=== PATIENT | male | born 1955 | race Caucasian/White ===

== ENCOUNTER 2020-05-08 19:19 | Observation (INO) | payer MEDICARE ==
[2020-05-08] MEDS ORDERED: Morphine 4 MG/ML VIAL ONE ×2 (20:09→21:31)
[2020-05-08] MEDS ORDERED: Ondansetron PF 4 MG/2 ML Vial ONE (20:09)
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
[2020-05-08 21:53] LABS: Bilirubin Negative (Negative); Blood, Urine Negative (Negative); Clarity Clear (Clear); Glucose, Urine (Dipstick) Normal (Negative); Ketone, Urine Negative (Negative); Leukocyte Negative Leu/uL (Negative); Nitrite Negative (Negative); Protein, Urine (Dipstick) Negative (Neg-Trace); Specific Gravity, Urine 1.008 (1.002-1.036); Urobilinogen Normal mg/dL (Less than 2)
[2020-05-08 21:57] LABS: #Basophils 0.1 thou/uL (0.0-0.2); #Eosinphils 0.1 thou/uL (0.0-0.7); #Lymphocytes 1.6 thou/uL (1.20-3.40); #Monocytes 0.2 thou/uL (0.11-0.59); #Neutrophils 8.4 thou/uL (1.40-6.50); %Basophils 0.9 % (0.0-1.0); %Eosinophils 0.6 % (0.0-10.0); %Monocytes 2.2 % (0.0-10.0); %Neutrophils 81.3 % (42.0-75.0); Hemoglobin 16.2 g/dL (14.0-18.0); Mean Corpuscular HGB CONC 33.4 g/dL (32.0-36.0); Mean Corpuscular Hemoglobin 31.8 pg (27.0-31.0); Mean Corpuscular Volume 95.2 fL (78.0-98.0); Mean Platelet Volume 7.2 fL (7.4-10.4); Platelet Count 223 thou/uL (130-400); White Blood Cell (WBC) Count 10.3 thou/uL (4.8-10.8)
[2020-05-08 22:02] LABS: INR-International Normal Ratio 0.9; PTT 27.1 sec (22.9-36.1); Prothrombin Time 12.7 sec (12.0-14.7)
[2020-05-08 22:11] LABS: ALT (SGPT) 30 U/L (8-55); AST (SGOT) 23 U/L (5-34); Albumin 4.4 g/dL (3.4-4.8); Alkaline Phosphatase 88 U/L (40-110); Anion Gap 17 mmol/L (10-20); BUN (Urea Nitrogen) 12 mg/dL (8.4-25.7); Bilirubin, Total 0.4 mg/dL (0.2-1.2); Calc. Creatinine Clearance 0 mL/min (70-130); Calcium 9.2 mg/dL (7.8-10.44); Carbon Dioxide 22 mmol/L (23-31); Chloride 106 mmol/L (98-107); Estimated GFR-MDRD 76; Globulin 2.7 g/dL (2.4-3.5); Glucose 100 mg/dL (80-115); Potassium 3.7 mmol/L (3.5-5.1); Protein, Total 7.1 g/dL (5.8-8.1); Sodium 141 mmol/L (136-145)
[2020-05-08] MEDS ORDERED: Dextrose 50% Abboject 50 ML SYRINGE SLOW IVP PRN (22:44)
[2020-05-08] MEDS ORDERED: Ondansetron ODT 4 MG TAB PO PRN (22:44)
[2020-05-08] MEDS ORDERED: Morphine 4 MG/ML VIAL SLOW IVP PRN (22:44)
[2020-05-08] MEDS ORDERED: Ondansetron PF 4 MG/2 ML Vial IVP PRN (22:44)
[2020-05-08] MEDS ORDERED: Dextrose 5% in Water 1,000 ML IV PRN (22:44)
[2020-05-08] MEDS ORDERED: Ketorolac Tromethamine 30 MG/ML VIAL IVP SCH (22:45)
[2020-05-08] MEDS ORDERED: Sodium Chloride 0.9% 1,000 ML IV SCH (22:45)
[2020-05-08] MEDS ORDERED: Cyclobenzaprine 10 MG TAB PO PRN (22:48)
[2020-05-08] MEDS ORDERED: Ibuprofen 600 MG TAB PO PRN (22:48)
[2020-05-08 23:13] LABS: Magnesium 1.9 mg/dL (1.6-2.6); Phosphorus 2.6 mg/dL (2.3-4.7)
[2020-05-08] MEDS ORDERED: traMADol HCl 50 MG TAB ONE (23:33)
[2020-05-08] MEDS ORDERED: Cyclobenzaprine 10 MG TAB ONE (23:33)
[2020-05-08] MEDS ORDERED: Ketorolac Tromethamine 30 MG/ML VIAL ONE (23:33)
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
[2020-05-09] MEDS: traMADol HCl 50 MG TAB PO SCH ×2 (01:41→04:04)
[2020-05-09] MEDS: Gabapentin 300 MG CAP PO SCH ×3 (01:41→17:31)
[2020-05-09] MEDS: Acetaminophen 500 MG TAB PO SCH ×2 (01:41→04:04)
[2020-05-09 01:46] VITALS: BMI 27.4
[2020-05-09 05:20] LABS: Hemoglobin 14.9 g/dL (14.0-18.0); Mean Corpuscular HGB CONC 33.9 g/dL (32.0-36.0); Mean Corpuscular Hemoglobin 32.7 pg (27.0-31.0); Mean Corpuscular Volume 96.4 fL (78.0-98.0); Mean Platelet Volume 7.1 fL (7.4-10.4); Platelet Count 196 thou/uL (130-400); Red Blood Cell (RBC) Count 4.55 mill/uL (4.70-6.10); White Blood Cell (WBC) Count 6.5 thou/uL (4.8-10.8)
[2020-05-09 05:45] LABS: Anion Gap 14 mmol/L (10-20); BUN (Urea Nitrogen) 15 mg/dL (8.4-25.7); Calc. Creatinine Clearance 80 mL/min (70-130); Calcium 8.6 mg/dL (7.8-10.44); Carbon Dioxide 24 mmol/L (23-31); Chloride 106 mmol/L (98-107); Estimated GFR-MDRD 61; Glucose 110 mg/dL (80-115); Magnesium 2.4 mg/dL (1.6-2.6); Phosphorus 5.9 mg/dL (2.3-4.7); Potassium 4.6 mmol/L (3.5-5.1); Sodium 139 mmol/L (136-145)
[2020-05-09] MEDS: Tamsulosin HCl 0.4 MG CAP PO SCH (08:49)
[2020-05-09] MEDS: Senokot S 8.6-50 MG TAB PO SCH ×2 (08:49→21:34)
[2020-05-09] MEDS: Polyethylene Glycol 3350 17 GM Packet PO SCH (08:49)
[2020-05-09] MEDS ORDERED: Famotidine 20 MG TAB PO SCH (09:00)
[2020-05-09] MEDS ORDERED: Gabapentin 300 MG CAP PO SCH (09:00)
[2020-05-09] MEDS: Acetaminophen/Codeine 30-300mg Tablet PO SCH ×4 (10:20→21:34)
[2020-05-09] MEDS: Ibuprofen 600 MG TAB PO SCH ×2 (10:20→18:58)
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
[2020-05-09] MEDS: Enoxaparin Sodium 30 MG/0.3 ML SYRINGE SC SCH (21:35)
[2020-05-10] MEDS: Gabapentin 300 MG CAP PO SCH ×2 (00:06→08:26)
[2020-05-10] MEDS: Ibuprofen 600 MG TAB PO SCH ×2 (02:12→08:26)
[2020-05-10] MEDS: Acetaminophen/Codeine 30-300mg Tablet PO SCH (02:22)
[2020-05-10] MEDS: Acetaminophen/Codeine 30-300mg Tablet PO PRN ×2 (05:25→13:40)
[2020-05-10] MEDS: Enoxaparin Sodium 30 MG/0.3 ML SYRINGE SC SCH (08:26)
[2020-05-10] MEDS: Senokot S 8.6-50 MG TAB PO SCH (08:26)
[2020-05-10] MEDS: Polyethylene Glycol 3350 17 GM Packet PO SCH (08:26)
[2020-05-10] MEDS: Tamsulosin HCl 0.4 MG CAP PO SCH (08:26)
[2020-05-10 12:15] VITALS: BP 117/77; TEMP 98
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
== END 2020-05-10 14:00 | disposition home or self-care (01) ==
LOC: ERS 19:19 → SURG B 22:48
PROVIDERS: ADMIT Surgery; ATTEND Surgery
DX: S32.051A Stable burst fracture of fifth lumbar vertebra, initial encounter for closed fracture (principal); G89.11 Acute pain due to trauma; K57.30 Diverticulosis of large intestine without perforation or abscess without bleeding; N40.0 Benign prostatic hyperplasia without lower urinary tract symptoms; K40.20 Bilateral inguinal hernia, without obstruction or gangrene, not specified as recurrent; V86.99XA Unspecified occupant of other special all-terrain or other off-road motor vehicle injured in nontraffic accident, initial encounter
CPT/HCPCS: 72131; 72170; 72192; 80048; 80053; 81003; 83735 ×2; 84100 ×2; 85025; 85027; 85610; 85730; 86850; 86900; 86901; 96372 ×2; 96374; 96375; 96376; 97116 ×2; 97139 ×5; 97530 ×2; 97535 ×2; 99285; G0378 ×4; 36415; G0390; J1650; J1885; J2270; J2405; J3475; J3490; J7030

== ENCOUNTER 2020-05-26 09:09 | Outpatient (CLI) | payer MEDICARE ==
--- NOTE | 2020-05-26 10:32 | RAD ---
LUMBAR SPINE 2 VIEWS: HISTORY: Lumbar fracture. COMPARISON: Comparison is made to CT lumbar spine 05/08/2020. FINDINGS: Burst fracture of the L5 vertebra is again noted. Loss of height does not appear significantly martinez ed when compared to 05/08/2020. Mild retropulsion is stable. The other lumbar vertebrae maintain height and alignment. No significant interval change. IMPRESSION: Burst fracture at L5 appears stable from the CT of 05/08/2020. POS: [facility]
== END 2020-05-26 09:10 | disposition home or self-care (01) ==
LOC: BICRAD 09:09
PROVIDERS: ATTEND Neurological Surgery
DX: S32.051D Stable burst fracture of fifth lumbar vertebra, subsequent encounter for fracture with routine healing (principal)
CPT/HCPCS: 72100

== ENCOUNTER 2020-06-19 10:16 | Outpatient (CLI) | payer MEDICARE ==
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
== END 2020-06-19 10:17 | disposition home or self-care (01) ==
LOC: BICCT 10:16
PROVIDERS: ATTEND Neurological Surgery
DX: S32.051D Stable burst fracture of fifth lumbar vertebra, subsequent encounter for fracture with routine healing (principal)
CPT/HCPCS: 72131

== ENCOUNTER 2020-07-14 06:11 | Day surgery (SDC) | payer MEDICARE ==
[2020-07-13 09:14] VITALS: BMI 25.0
[2020-07-14] MEDS ORDERED: Acetaminophen 500 MG TAB ONE (06:30)
[2020-07-14] MEDS ORDERED: Ketorolac Tromethamine 30 MG/ML VIAL ONE (06:30)
[2020-07-14] MEDS ORDERED: Lidocaine 1% w/Epinephrine 1:100K 20 ML VIAL ONE (06:42)
[2020-07-14] MEDS ORDERED: Bupivacaine 0.25% HCL 30 ML VIAL ONE (06:42)
[2020-07-14] MEDS ORDERED: Bupivacaine PF 0.5% 30 ML VIAL ONE ×2 (06:42→06:43)
[2020-07-14] MEDS ORDERED: Midazolam HCl 2 mg/2 ml Vial ONE (07:03)
[2020-07-14] MEDS ORDERED: Fentanyl 100 MCG/2 ML VIAL ONE ×2 (07:03→09:11)
[2020-07-14] MEDS ORDERED: Ondansetron PF 4 MG/2 ML Vial ONE (10:18)
[2020-07-14] MEDS ORDERED: PHENYLEPHRINE-NS 100 MCG/ML 10 ML SYRINGE ONE (10:18)
[2020-07-14] MEDS ORDERED: Glycopyrrolate 0.2 MG/ML 5 ML SYRINGE ONE (10:18)
[2020-07-14] MEDS ORDERED: ePHEDrine 50 MG/ML VIAL ONE (10:18)
[2020-07-14] MEDS ORDERED: Lidocaine 1% PF 5 ML VIAL ONE (10:18)
[2020-07-14] MEDS ORDERED: PROPOFOL 200 MG/20 ML VIAL ONE (10:18)
[2020-07-14] MEDS ORDERED: Dexamethasone 20 MG/5 ML VIAL ONE (10:18)
[2020-07-14] MEDS ORDERED: Tamsulosin HCl 0.4 MG CAP ONE (11:31)
--- NOTE | 2020-07-17 12:03 | OP ---
DATE OF PROCEDURE: 07/14/2020 PROCEDURE: Right inguinal hernia open repair with mesh. PREOPERATIVE DIAGNOSIS: Right inguinal hernia. POSTOPERATIVE DIAGNOSIS: Right inguinal hernia. HISTORY: Mr. Dunbar is a 65-year-old man with recent onset of a symptomatic right inguinal hernia. This causes him daily pain and limits his activities, but is reducible. Recommendation was made to proceed with open repair. DESCRIPTION OF PROCEDURE: After informed consent was obtained and appropriate preoperative antibiotics were administered, the patient was taken to the operating room, placed in supine position, and general anesthesia was administered. He was prepped and draped in a standard sterile fashion and local anesthesia infused through the skin and subcutaneous tissues overlying the right inguinal canal. An oblique skin incision was made in the direction of the skin crease and dissection carried down to the external oblique aponeurosis, which was incised. This was lifted off the underlying tissues and the incision extended through the external ring. The ilioinguinal nerve was identified, but would have required extensive mobilization to preserve. Therefore, this was divided high as had been previously discussed with the patient. The enlarged inguinal cord was elevated to the level of the pubic tubercle and the cremaster muscles divided. A large cord lipoma was identified laterally. This was traced back to the internal ring, ligated and resected. A large indirect hernia sac was identified anteromedially. This was dissected free of the cord structures back to the level of the internal ring. The hernia sac was thinned laterally, but very thickened medially and was felt that it could contain cecum or bladder and therefore the decision was made to only resect the thin lateral segment of the sac. This was resected and then closed with a 3-0 Vicryl suture under direct vision. The remainder of the hernia sac was dunked into the preperitoneal space and an extra large plug and patch obtained and placed into the enlarged internal ring and secured in a couple locations to the internal oblique, which was quite attenuated and stretched out. The patch was then placed into the inguinal canal and secured to the pubic tubercle inferiorly, the shelving edge of the inguinal ligament laterally, and at intervals to the internal oblique medially. Additional local anesthesia was infused for postoperative pain control. A keyhole incision in the mesh was made around the cord structures at the level of the internal ring and the mesh wrapped around the cord structures and secured with suture allowing egress of the cord structures and introduction of a fingertip. An ON-Q pain pump was obtained and tunneled superolaterally and placed into the inguinal canal. The external oblique aponeurosis was then reapproximated with a running 2-0 Vicryl suture, taking care not to pull up the cord structures or the ON-Q pain pump into the closure. Krystal's fascia was reapproximated with 3-0 Vicryl sutures and the skin was closed with a running subcuticular 4-0 Vicryl suture. Dermabond dressings were placed and the ON-Q pain pump was secured with a Tegaderm. The patient was extubated and taken to Recovery in good condition. ESTIMATED BLOOD LOSS: Minimal. COMPLICATIONS: There were no complications. SPECIMENS: Large cord lipoma and portion of hernia sac. Job ID: [id number] [facility]
== END 2020-07-14 12:39 | disposition home or self-care (01) ==
LOC: SDC 06:11
PROVIDERS: ATTEND Surgery
PROC: 0YU50JZ Supplement Right Inguinal Region with Synthetic Substitute, Open Approach (ICD-10-PCS; principal; 2020-07-14)
DX: K40.90 Unilateral inguinal hernia, without obstruction or gangrene, not specified as recurrent (principal); D17.6 Benign lipomatous neoplasm of spermatic cord; N40.1 Benign prostatic hyperplasia with lower urinary tract symptoms; R39.14 Feeling of incomplete bladder emptying; Z79.899 Other long term (current) drug therapy
CPT/HCPCS: 49505; 88304; C1781; J0690; J1100; J1885; J2250; J2405; J2704; J3010; J3490; S0020